=== PATIENT | male | born 1945 | race Caucasian/White ===

== ENCOUNTER 2019-03-26 07:35 | Observation (INO) | payer MEDICARE, BC ==
[2019-03-26 08:07] LABS: #Eosinphils 0.2 thou/uL (0.0-0.7); #Lymphocytes 1.5 thou/uL (1.20-3.40); #Monocytes 0.8 thou/uL (0.11-0.59); #Neutrophils 8.7 thou/uL (1.40-6.50); %Basophils 0.3 % (0.0-1.0); %Eosinophils 1.8 % (0.0-10.0); %Monocytes 7.3 % (0.0-10.0); %Neutrophils 77.7 % (42.0-75.0); Hemoglobin 15.1 g/dL (14.0-18.0); Mean Corpuscular HGB CONC 33.3 g/dL (32.0-36.0); Mean Corpuscular Hemoglobin 28.1 pg (27.0-31.0); Mean Corpuscular Volume 84.3 fL (78.0-98.0); Mean Platelet Volume 7.7 fL (7.4-10.4); Platelet Count 160 thou/uL (130-400); RBC Distribution Width 13.8 % (11.5-14.5); Red Blood Cell (RBC) Count 5.36 mill/uL (4.70-6.10); White Blood Cell (WBC) Count 11.2 thou/uL (4.8-10.8)
[2019-03-26 09:27] LABS: ALT (SGPT) 8 U/L (8-55); AST (SGOT) 14 U/L (5-34); Albumin 4.1 g/dL (3.4-4.8); Alkaline Phosphatase 77 U/L (40-150); Anion Gap 11 mmol/L (10-20); BUN (Urea Nitrogen) 14 mg/dL (8.4-25.7); Bilirubin, Total 0.7 mg/dL (0.2-1.2); Calc. Creatinine Clearance 0 mL/min (70-130); Calcium 9.8 mg/dL (7.8-10.44); Carbon Dioxide 27 mmol/L (23-31); Chloride 105 mmol/L (98-107); Estimated GFR-MDRD 69; Globulin 2.9 g/dL (2.4-3.5); Glucose 85 mg/dL (83-110); Potassium 3.3 mmol/L (3.5-5.1); Sodium 140 mmol/L (136-145)
[2019-03-26] MEDS ORDERED: Fentanyl 100 MCG/2 ML VIAL ONE ×2 (09:40→09:42)
--- NOTE | 2019-03-26 10:11 | CT ---
CT arteriogram chest with IV contrast and 3-D imaging HISTORY: Chest pain. Dyspnea. COMPARISON: 02/10/2017. FINDINGS: There is good contrast opacification of the central pulmonary arteries. Evaluation of the m ore peripheral pulmonary arteries is limited due to motion artifact and dilution of contrast. Aorta not yet opacified. Calcification within the arterial structures. Nonspecific lymph nodes throughout t he mediastinum. Atelectasis at the lung bases is similar to the 2017 exam. Within the partially visualized upper abdomen, small cyst in the left liver lobe is stable. Gallbladder is surgically abse nt. IMPRESSION: No CT evidence of pulmonary embolus. Atherosclerosis. Chronic-type findings are stable.
--- NOTE | 2019-03-26 10:21 | RAD ---
FRONTAL VIEW CHEST: COMPARISON: No prior comparison. INDICATION: Chest pain. FINDINGS: There is bilateral perihilar interstitial prominence. No lobar consolidation, effusion, or discrete pneumothorax. Cardiac silhouette is accentuated by portable technique. There is vascular calcificat ion. Osseous degenerative changes are present. IMPRESSION: Bilateral perihilar interstitial opacities may be on the basis of edema or bronchiolitis. Followup i maging may be obtained for continued assessment. POS: TPC
[2019-03-26] MEDS ORDERED: Amlodipine 5 MG TAB ONE (11:06)
[2019-03-26] MEDS ORDERED: Furosemide 40 MG TAB ONE (11:06)
[2019-03-26] MEDS ORDERED: hydrALAZINE 25 MG TAB ONE (11:06)
[2019-03-26] MEDS ORDERED: Levofloxacin 500 mg/D5W 100 ml Premix Bag ONE (11:06)
[2019-03-26] MEDS ORDERED: Aspirin Chewable 81 MG TAB ONE (11:06)
[2019-03-26] MEDS ORDERED: Pantoprazole 40 MG VIAL ONE (11:10)
[2019-03-26] MEDS ORDERED: Ondansetron PF 4 MG/2 ML Vial IVP PRN (12:53)
[2019-03-26] MEDS ORDERED: Ondansetron ODT 4 MG TAB PO PRN (12:53)
[2019-03-26] MEDS ORDERED: Acetaminophen 325 MG TAB PO PRN (12:53)
[2019-03-26] MEDS ORDERED: ISOVUE-370 76%-LOCM 1 ML ONE (13:11)
[2019-03-26 13:18] LABS: Troponin I Less than 0.010 ng/mL (< 0.028)
[2019-03-26 14:23] VITALS: BMI 29.0
[2019-03-26 16:29] LABS: INR-International Normal Ratio 1.1; PTT 30.7 SEC (22.9-36.1); Prothrombin Time 13.8 SEC (12.0-14.7)
--- NOTE | 2019-03-26 16:33 | HP ---
PRIMARY CARE PHYSICIAN: Oneil Brumfield MD CHIEF COMPLAINT: Chest pain. HISTORY OF PRESENT ILLNESS: Mr. Sainz is a 73-year-old man with past medical history of hypertension, coronary artery disease, DVTs, and TIAs along with dementia, who had presented to [facility] after he experienced substernal chest pain that started around 6 a.m. this morning. He states that the pain was worse with deep breathing. This pain improved in the ED after he had received fentanyl. During his initial workup, a portable chest x- ray was performed and showed bilateral perihilar interstitial opacities. A CT of the chest was also performed and that showed no evidence of pulmonary embolism at this time. He had remained in sinus rhythm on the monitor and his blood pressure and other vital signs remained stable. He states that his national account executive is Dr. Ybarra and he had denied any recent cardiac workup. His cardiac enzymes are so far negative and BNP was normal at 46.7. REVIEW OF SYSTEMS: All other systems reviewed and found to be negative unless mentioned in HPI. PAST MEDICAL HISTORY: Hypertension, coronary artery disease with history of DVT and TIAs in the past, and history of dementia. PAST SURGICAL HISTORY: Metal placed in right eye socket and right knee surgery. PAST PSYCHIATRIC HISTORY: Includes dementia. SOCIAL HISTORY: The patient denies alcohol, tobacco, or illicit drug use. KNOWN ALLERGIES: Hydrocodone, morphine, penicillins, and tetanus. CURRENT HOME MEDICATIONS: 1. Exelon 13.3 mg transdermal once daily. 2. Protonix 40 mg oral daily. 3. Finasteride 5 mg oral daily. 4. Sertraline 50 mg oral daily. 5. Fludrocortisone 0.1 mg oral once daily. 6. Buspirone 10 mg oral twice daily. 7. Toviaz 4 mg oral once daily. PHYSICAL EXAMINATION: VITAL SIGNS: BP 128/83, pulse 81, respirations 16, temperature 98.2, and O2 saturation 96% on room air. GENERAL: The patient is awake, alert, and oriented x3. He is currently sitting comfortably in bed and his family is at bedside and he is in no acute distress at this time. HEENT: Atraumatic and normocephalic. Pupils are round and reactive to light. Extraocular muscles intact. Moist mucous membranes noted. NECK: Soft and supple. Trachea midline. CARDIOVASCULAR: Positive S1 and S2. Regular rate and rhythm. No murmur auscultated. RESPIRATORY: Clear to auscultation bilaterally. No wheezes, rales, or rhonchi. ABDOMEN: Soft and nontender. Bowel sounds present. MUSCULOSKELETAL: Moves all extremities equal. Pedal and radial pulses 2+ bilaterally. No edema noted. NEUROLOGIC: Cranial nerves 2 through 12 grossly intact. No focal deficits noted. Speech intact and normal. Gait not assessed. SKIN: Warm, dry and intact. No rash. No ulceration noted. PSYCHIATRIC: Good mood and affect, currently at baseline. LABORATORY DATA: WBC 11.2, RBC 5.36, hemoglobin 15.1, and platelet 160. Sodium 140, potassium 3.3, BUN 14, creatinine 1.05, estimated GFR 69, and glucose 85. Troponin less than 0.010 and BNP 46.7. DIAGNOSTIC IMAGING: Portable chest x-ray showed bilateral perihilar interstitial opacities, which appears to be chronic. CTA of the chest showed no CT evidence of pulmonary embolism. ASSESSMENT AND PLAN: 1. Atypical chest pain, so far serial troponins were found to be negative x1 and we will trend these out. We will also order a cardiac stress test to rule out acute coronary syndrome at this time. He will be resumed on his home regimen and monitored on telemetry. 2. Hypertension, currently stable. At this time, continue to monitor his blood pressure and other vital signs closely. 3. History of coronary artery disease. 4. History of dementia, currently at baseline. 5. Prophylaxis. 6. Code status, full code. 7. Surrogate decision maker is his , Indu. Disposition pending further workup and clinical findings. Job ID: [id number] [facility]
[2019-03-26 16:46] LABS: Troponin I Less than 0.010 ng/mL (< 0.028)
[2019-03-26] MEDS: Famotidine 20 MG TAB PO SCH (20:10)
[2019-03-26] MEDS ORDERED: Finasteride 5 MG TAB PO SCH (21:00)
[2019-03-26] MEDS ORDERED: Trospium 20 MG TAB PO SCH (21:15)
[2019-03-26] MEDS: traMADol HCl 50 MG TAB PO PRN (22:50)
[2019-03-27 05:27] LABS: INR-International Normal Ratio 1.2; Prothrombin Time 14.7 SEC (12.0-14.7)
[2019-03-27 05:38] LABS: #Eosinphils 0.2 thou/uL (0.0-0.7); #Lymphocytes 1.6 thou/uL (1.20-3.40); #Monocytes 0.6 thou/uL (0.11-0.59); %Basophils 0.3 % (0.0-1.0); %Eosinophils 3.7 % (0.0-10.0); %Lymphocytes 23.8 % (21.0-51.0); %Monocytes 9.8 % (0.0-10.0); %Neutrophils 62.3 % (42.0-75.0); Hemoglobin 13.6 g/dL (14.0-18.0); Mean Corpuscular HGB CONC 33.4 g/dL (32.0-36.0); Mean Corpuscular Hemoglobin 28.9 pg (27.0-31.0); Mean Corpuscular Volume 86.5 fL (78.0-98.0); Mean Platelet Volume 7.9 fL (7.4-10.4); Platelet Count 138 thou/uL (130-400); RBC Distribution Width 13.8 % (11.5-14.5); Red Blood Cell (RBC) Count 4.71 mill/uL (4.70-6.10); White Blood Cell (WBC) Count 6.5 thou/uL (4.8-10.8)
[2019-03-27 05:51] LABS: Anion Gap 9 mmol/L (10-20); BUN (Urea Nitrogen) 15 mg/dL (8.4-25.7); Calc. Creatinine Clearance 100 mL/min (70-130); Carbon Dioxide 25 mmol/L (23-31); Cardiac Risk 4.6 (Less than 4.5); Chloride 108 mmol/L (98-107); Cholesterol 128 mg/dl (< 200 Desired); Estimated GFR-MDRD 89; Glucose 94 mg/dL (83-110); HDL Cholesterol 28 mg/dL (>60 Neg Risk); LDL Cholesterol, Calculated 77 mg/dL; Sodium 139 mmol/L (136-145); Triglycerides 113 mg/dL (Less than 150)
[2019-03-27 05:59] LABS: Potassium 2.9 mmol/L (3.5-5.1)
[2019-03-27] MEDS ORDERED: Potassium Chloride 20 MEQ in Sodium Chloride 0.9% 250 ML 250 ML IVPB SCH (06:45)
[2019-03-27] MEDS ORDERED: Potassium Chloride 20 MEQ TAB PO SCH (06:45)
[2019-03-27] MEDS ORDERED: Sodium Chloride 0.9% 1,000 ML IV SCH (07:30)
[2019-03-27] MEDS: Famotidine 20 MG TAB PO SCH (07:42)
[2019-03-27 08:52] VITALS: BP 131/72; TEMP 97.3
[2019-03-27] MEDS ORDERED: Trospium 20 MG TAB PO SCH (09:00)
[2019-03-27] MEDS ORDERED: Fludrocortisone Acetate 0.1 MG TAB PO SCH (09:00)
--- NOTE | 2019-03-27 12:24 | PDOC.HOSPP ---
- Subjective Encounter Date: 03/27/19 Encounter Time: 10:15 Subjective: no current chest pain or palp feels better at bedside he amb with walker, is hard of hearing and doesn't wear hearing aids no prior cardiac history, has had stress test before which was -ve years ago per . he has seen in the past - Objective Vital Signs & Weight: Vital Signs (12 hours) Temp Pulse Resp BP Pulse Ox 03/27/19 10:39 94 L 03/27/19 08:04 97.3 F L 70 16 131/72 93 L 03/27/19 04:17 97.4 F L 67 16 141/75 H 94 L Weight Weight 202 lb 8 oz I&O: 03/26/19 03/27/19 03/28/19 06:59 06:59 06:59 Intake Total 390 250 Output Total 955 300 Balance -565 -50 Result Diagrams: 03/27/19 05:01 03/27/19 05:01 Hospitalist ROS - Medication Medications: Active Medications Generic Name Dose Route Start Last Admin Trade Name Artem PRN Reason Stop Dose Admin Acetaminophen 650 mg 03/26/19 12:53 03/26/19 20:10 Tylenol PO 650 mg Q4H PRN Administration Headache/Fever/Mild Pain (1-3) Famotidine 20 mg 03/26/19 21:00 03/27/19 07:42 Pepcid PO 20 mg BID ANTONIO Administration Finasteride 5 mg 03/26/19 21:00 03/26/19 22:50 Proscar PO 5 mg HS ANTONIO Administration Fludrocortisone Acetate 0.05 mg 03/27/19 09:00 03/27/19 07:43 Florinef PO 0.05 mg DAILY ANTONIO Administration Tramadol HCl 100 mg 03/26/19 21:01 03/26/19 22:50 Ultram PO 100 mg BID PRN Administration Pain Trospium 20 mg 03/27/19 09:00 03/27/19 07:43 Trospium PO 20 mg BID ANTONIO Administration - Exam General Appearance: NAD, awake alert Eye: PERRL, anicteric sclera ENT: no oropharyngeal lesions, moist mucosa Neck: supple, no JVD Heart: RRR, no murmur Respiratory: no wheezes, no rales Gastrointestinal: soft, non-tender, non-distended, normal bowel sounds Extremities: no cyanosis, no edema Neurological: cranial nerve grossly intact, no focal deficits Psychiatric: normal affect, A&O x 3 Hosp A/P (1) Chest pain Code(s): R07.9 - CHEST PAIN, UNSPECIFIED Status: Acute (2) HTN (hypertension) Code(s): I10 - ESSENTIAL (PRIMARY) HYPERTENSION Status: Chronic Qualifiers: Hypertension type: essential hypertension Qualified Code(s): I10 - Essential (primary) hypertension (3) H/O deep venous thrombosis Code(s): Z86.718 - PERSONAL HISTORY OF OTHER VENOUS THROMBOSIS AND EMBOLISM Status: Chronic (4) Dementia Code(s): F03.90 - UNSPECIFIED DEMENTIA WITHOUT BEHAVIORAL DISTURBANCE Status: Chronic Qualifiers: Dementia type: Alzheimer's disease - Plan await stress test results hemostable continue current meds as above dc home if stress test is -ve d/w patient and at bedside about current plan
--- NOTE | 2019-03-27 13:08 | NM ---
Radionucleotide stress and rest myocardial perfusion scan with CT attenuation correction and SPECT im aging Left ventricular wall motion evaluation and ejection fraction HISTORY: Chest pain. FINDINGS: Adenosine protocol. Homogeneous uptake of radiotracer throughout the left ventricular myoca rdium. No focal perfusion defect or reversibility. QGS analysis of gated SPECT images shows no focal wall motion abnormalities. Ejection fraction calculated at 62%. IMPRESSION: Normal myocardial perfusion scan. Normal LVEF.
[2019-03-27] MEDS: traMADol HCl 50 MG TAB PO PRN (13:56)
[2019-03-27 14:33] LABS: Anion Gap 10 mmol/L (10-20); BUN (Urea Nitrogen) 13 mg/dL (8.4-25.7); Calc. Creatinine Clearance 96 mL/min (70-130); Calcium 8.9 mg/dL (7.8-10.44); Carbon Dioxide 25 mmol/L (23-31); Chloride 108 mmol/L (98-107); Estimated GFR-MDRD 85; Glucose 88 mg/dL (83-110); Potassium 3.6 mmol/L (3.5-5.1); Sodium 139 mmol/L (136-145)
[2019-03-27] MEDS ORDERED: ADENOSINE 60 MG/20 ML VIAL ONE (15:54)
--- NOTE | 2019-03-31 09:38 | DIS ---
DATE OF ADMISSION: 03/26/2019 DATE OF DISCHARGE: 03/27/2019 DISCHARGE DISPOSITION: To home. PRIMARY DISCHARGE DIAGNOSIS: Chest pain, which is noncardiac. SECONDARY DISCHARGE DIAGNOSES: 1. Hypertension. 2. History of deep venous thrombosis. 3. Dementia. PROCEDURES DONE DURING HOSPITALIZATION: CT angio of chest done showed no evidence of PE. Nuclear stress test done showed normal myocardial perfusion scan and ejection fraction of 62%. No wall motion abnormalities were seen. H and H are 13 and 40, platelet count 138, and MCV is 86. BUN 13, creatinine 0.8. Total cholesterol 128, triglycerides 113, and LDL 77. Troponin x3 negative. BNP 46. DISCHARGE MEDICATIONS: 1. Buspirone 10 mg p.o. at bedtime and 15 mg p.o. daily. 2. Toviaz 4 mg p.o. at bedtime. 3. Finasteride 5 mg p.o. at bedtime. 4. Florinef 0.1 mg p.o. daily. 5. Exelon patch topical at bedtime. 6. Zoloft 100 mg p.o. daily. 7. Ultram p.r.n. for pain. ALLERGIES: TO HYDROCODONE, MORPHINE, PENICILLIN, TETANUS TOXOID. DISCHARGE PLAN: The patient to follow up with his primary care physician, Dr. Oneil Brumfield in 1 week. He also needs to see his primary pastoral ministries professor, Dr. Ybarra in 2 to 3 weeks. BRIEF COURSE DURING HOSPITALIZATION: The patient initially came in with complaints of chest pain. He has known history of hypertension, prior history of coronary artery disease, and history of DVT/TIAs in the past. He also carries a diagnosis of dementia. In view of multiple risk factors and atypical chest pain on arrival, the patient was placed under observation on telemetry. Three sets of troponin were done, which were negative. Nuclear stress test done showed no reversible ischemia. Mr. Sainz remained hemodynamically stable with no complaints of chest pain at the time of discharge. His was given complete updates. He needs follow up with Dr. Oneil Brumfield, his primary care physician in 1 week. Please note I have seen and examined patient on the day of discharge. Job ID: [id number] [facility]
--- NOTE | 2019-03-31 13:28 | EKG ---
Test Reason : Blood Pressure : / mmHG Vent. Rate : 078 BPM Atrial Rate : 078 BPM P-R Int : 188 ms QRS Dur : 134 ms QT Int : 408 ms P-R-T Axes : 022 067 025 degrees QTc Int : 465 ms Normal sinus rhythm Right bundle branch block Inferior infarct , age undetermined Abnormal ECG Confirmed by LEXII CHAKRABORTY, HAYDEE ([id number]), associate entertainment editor VALARIE PATEL ([id number]) on 03/31/2019 1:27:44 PM Referred By: Confirmed By:HAYDEE SHULTZ MD
== END 2019-03-27 15:19 | disposition home or self-care (01) ==
LOC: EDBD 07:35 → ERS 07:35 → ERHOLD 10:50 → 2SW 13:35
PROVIDERS: ADMIT Internal Medicine; ATTEND Internal Medicine
DX: R07.89 Other chest pain (principal); I10 Essential (primary) hypertension; I25.10 Atherosclerotic heart disease of native coronary artery without angina pectoris; G30.9 Alzheimer's disease, unspecified; F02.80 Dementia in other diseases classified elsewhere, unspecified severity, without behavioral disturbance, psychotic disturbance, mood disturbance, and anxiety; Z86.73 Personal history of transient ischemic attack (TIA), and cerebral infarction without residual deficits; Z88.0 Allergy status to penicillin; Z88.5 Allergy status to narcotic agent; Z88.7 Allergy status to serum and vaccine; Z79.899 Other long term (current) drug therapy
CPT/HCPCS: 71045; 71275; 78452; 80048 ×2; 80053; 80061; 82550; 83735; 83880; 84484 ×2; 85025 ×2; 85610 ×2; 85730 ×2; 93005; 93017; 94760; 96374; 99285; A9500; 36415; 96365; 96366; 96375; C9113; G0378; J0153; J1956; J3010; J3480; J7050; Q9966